=== PATIENT | female | born 1990 | race Two or more races ===

== ENCOUNTER → 2024-07-15 | Outpatient (CLI) | payer BC, SELFPAY ==
--- NOTE | 2024-07-15 14:21 | XR_ITS ---
Examination: PA lateral chest 2 views TECHNIQUE: Upright PA lateral chest 2 views Exam date and time: July 15, 2024 1434 hours Comparison 03/03/2021 INDICATIONS: Shortness of breath chest pain today FINDINGS: Normal heart size Lungs are clear. The osseous structures are intact IMPRESSION: No active disease
== END | disposition home or self-care (01) ==
LOC: COPL 14:14 → CDIM 14:26
PROVIDERS: PCP Nurse Practitioner Family; Referring Provider Nurse Practitioner Family; Visit Provider Nurse Practitioner Family
DX: R06.02 Shortness of breath (principal)
CPT/HCPCS: 71046

== ENCOUNTER 2025-06-12 23:57 | Emergency (ER) | payer BC, SELFPAY ==
[2025-06-12 23:58] VITALS: BMI 25.6
--- NOTE | 2025-06-13 00:18 | EKG_ITS ---
[facility] Test Date: 2025-06-13 Pat Name: SOURAV ROMANO Department: Room: - Gender: Female [employer] Office: : 1990 Requested By: Moises Mcintyre Order Number: [id number] Reading MD: Moises Mcintyre Measurements Intervals [place] Rate: 67 P: CA: QRS: 55 QRSD: 77 T: 63 QT: 358 QTc: 379 Interpretive Statements SUPRAVENTRICULAR RHYTHM ABNORMAL RHYTHM ECG No previous ECG available for comparison /store/S0/[id number]/ecg/[id number].pdf
[2025-06-13 01:40] VITALS: BP 114/73; PULSE 71; RESP 18; TEMP 36.7; O2SAT 100
--- NOTE | 2025-06-13 01:53 | XR_ITS ---
Examination: CT brain head without contrast. 2-D sagittal coronal reconstructions Date and time of exam: June 13, 2025, 0208 hours INDICATIONS: Syncopal episode with seizure today CTDI: vol (mGy): 46.30 DLP: (mGycm): 844 Technique: Multiple CT axial sections of the brain have been obtained, 5 mm slice thickness. Contrast has not been administered. 2-D sagittal, coronal reconstructions have been obtained Low dose protocols were performed. One or more of the following dose reduction techniques were used; automated exposure control, adjustment of the mA and/or KV according to patient size, use of iterative reconstruction technique. Findings: No significant ventricular enlargement. Intra-axial or extra-axial hemorrhage density is not seen. No mass effect or midline shift Basal cisterns are not remarkable. Fourth ventricle is midline. Cranial vault intact. Impression: Negative for acute hemorrhage, mass effect or midline shift Advise clinical correlation and follow-up accordingly
--- NOTE | 2025-06-13 01:53 | XR_ITS ---
EXAMINATION: PA chest single view TECHNIQUE: Upright PA chest single view Date and time: June 13, 2025, 0212 hours, comparison July 15, 2024 INDICATION: Chest pain shortness of breath beginning 2 days ago. FINDINGS: Suspicious for early right lower lobe pneumonia. Normal heart size Left lung clear IMPRESSION: Suspicious for early right lower lobe pneumonia
--- NOTE | 2025-06-13 01:54 | PD.EDRME ---
Rapid Medical Screening Exam RME Arrival date/time: 06/12/25 23:57 34F with history of marijuana use presents to ED with syncopal vs seizure episode where she was walking to bathroom, blacked out, and woke up on the floor with a bleeding lip. Patient has also been coughing for about a month. Chief Complaint: Syncope / Near Syncope Time Seen by Provider: 06/13/25 00:09 Vital signs: Vital Signs Temperature 98.1 F 06/13/25 01:40 Pulse Rate 71 06/13/25 01:40 Respiratory Rate 18 06/13/25 01:40 Blood Pressure 114/73 06/13/25 01:40 Pulse Oximetry (%) 100 06/13/25 01:40 Oxygen Delivery Method Room Air 06/13/25 01:40 Exam: Normal pupil response and EOM. Clear lungs and normal WOB. Speech normal. Gait normal. Clinical Impression: seizure vs syncope vs vasovagal vs CAP vs cancer vs PE vs drug/alcohol use
[2025-06-13 02:45] LABS: Collection Type, Urine Clean Catch
[2025-06-13 02:57] LABS: Bacteria,Urine Rare; Bilirubin,Urine Negative (Negative); Blood,Urine Negative (Negative); Clarity,Urine Clear (Clear/Hazy); Color,Urine Yellow (Lt Yel-Yel); Culture Indicated,Urine Not Indicated; Glucose, Urine Negative (Negative); HCG Qualitative,Urine Negative; Hyaline Casts,Urine < 1 /hpf (0-1); Ketones,Urine Negative (Negative); Leukocyte Esterase,Urine Negative (Negative); Nitrite,Urine Negative (Negative); PH,Urine 6.0 (5.0-7.0); Protein,Urine 1+ (Neg - Trace); RBC,Urine 15 /hpf (0-3); Specific Gravity,Urine 1.033 (1.001-1.035); Squamous Epithelial Cell,Urine 5 /hpf (0-5); Urobilinogen,Urine Negative mg/dL (0.0-1.0); WBC,Urine 10 /hpf (0-5)
--- NOTE | 2025-06-13 02:58 | PRELIM_ITS ---
CT scan of the head without intravenous contrast (axial sections with sagittal and coronal reformats) June 13, 2025 0208 hours Clinical History: Syncope versus seizure Comparison: None available at the time of this report. Findings: No evidence of intracranial hemorrhage, mass effect or midline shift. The ventricles and CSF spaces are unremarkable. The calvarium is intact. The mastoid air cells and the visualized paranasal sinuses are clear. Impression: No evidence of intracranial hemorrhage, midline shift or calvarial fracture. ASPECTS score 10. Report Electronically Signed By: José Miguel Valdivia 06/13/2025 2:57:58 AM [EST]
[2025-06-13 03:21] LABS: Amphetamine/Methamp Scrn,U Negative (Negative); Barbiturate Screen,Urine Negative (Negative); Benzodiazepines Screen,Urine Negative (Negative); Benzoylecgonine Screen, Ur Negative (Negative); Fentanyl Screen,Urine Negative (Negative); Opiate Screen,Urine Negative (Negative); THC Screen,Urine Positive (Negative)
[2025-06-13 03:23] LABS: Lactate (Lactic Acid) 0.5 mMol/L (0.4-2.0)
[2025-06-13 03:26] LABS: Basophils # (Auto) 0.1 Thou/mm3 (0.0-0.2); Basophils % (Auto) 0 % (0-2.5); Eosinophils # (Auto) 0.0 Thou/mm3 (0.0-0.5); Eosinophils % (Auto) 0 % (0-10); Hematocrit 37.8 % (36.0-46.0); Hemoglobin 12.5 g/dL (12.0-16.0); Immature Granulocytes Auto 0.02 Thou/mm3 (0.00-0.00); Lymphocytes # (Auto) 1.6 Thou/mm3 (1.0-4.8); Lymphocytes % (Auto) 14 % (10-50); Mean Corpuscular HGB Conc 33.1 g/dl (31.0-37.0); Mean Corpuscular Hemoglobin 30.8 pg (25.0-35.0); Mean Corpuscular Volume 93 fL (80-100); Monocytes # (Auto) 0.8 Thou/mm3 (0.0-0.8); Monocytes % (Auto) 7 % (0-12); Neutrophils # (Auto) 8.8 Thou/mm3 (1.8-7.7); Neutrophils % (Auto) 78 % (37-80); Nucleated Red Blood Cell # 0.00 Thou/mm3 (0.00-0.00); Nucleated Red Blood Cell % 0 /100 WBC (0); Platelet Count 271 Thou/mm3 (140-440); RDW Standard Deviation 43.2 fL (36.4-46.3); Red Blood Count 4.06 Miln/mm3 (4.00-5.20); White Blood Count 11.2 Thou/mm3 (3.6-11.0)
[2025-06-13 04:01] LABS: Alanine Aminotransferase 12 U/L (10-49); Albumin, Serum 4.2 gm/dL (3.5-5.0); Albumin/Globulin Ratio 1.7 (1.2-2.2); Alcohol, Blood Medical < 3.0 mg/dL (0-10.0); Alkaline Phosphatase 38 U/L (46-116); Anion Gap 4 (7-16); Aspartate Amino Transferase 15 U/L (0-34); BUN/Creatinine Ratio 20 Ratio (12-20); Bilirubin,Total 0.3 mg/dL (0.3-1.2); Blood Urea Nitrogen 16 mg/dL (9-23); Calcium 9.4 mg/dL (8.3-10.6); Calcium (Corrected) 9.4 mg/dL (8.5-10.1); Carbon Dioxide 28.7 mMol/L (20.0-31.0); Chloride 106 mMol/L (98-107); Creatinine (Component) 0.8 mg/dL (0.6-1.3); Estimated Creatinine Clearance 85.1 mL/min (>60); Globulin 2.5 gm/dL (2.3-3.5); Glucose 93 mg/dL (74-106); Osmolality,Calculated 278 (275-295); Potassium 4.4 mMol/L (3.4-5.1); Sodium 139 mMol/L (136-145); Total Protein 6.7 gm/dL (5.7-8.2); Troponin I < 0.002 ng/mL (0.0-0.045); eGFR > 60 See Note
--- NOTE | 2025-06-13 04:17 | PD.EDSYNC ---
ED Syncope RME/HPI General Chief Complaint: Syncope / Near Syncope Stated Complaint: SYNCOPE Time Seen by Provider: 06/13/25 00:09 Arrival date/time: 06/12/25 23:57 RME / HPI RME / HPI narrative: 06/12/25 23:57 34F with history of marijuana use presents to ED with syncopal vs seizure episode where she was walking to bathroom, blacked out, and woke up on the floor with a bleeding lip. Patient has also been coughing for about a month. Dr. Parker?s Main ED Evaluation: 34yo female presenting with a syncopal episode preceeded by diaphoresis and lightheadedness shortly after rising from seated position to drop off a plate in the kitchen sink. Patient reports recent URI/cough and mild residual shortness of breath. Denies palpitations or recent fever. Incident occurred at ~2330, in which patient spontaneously regained consciousness on the floor without sustained injury. Similar episode occurred 9 months ago. PSH includes cholecystectomy. Daily marijuana use. Related Data Home Medications ?Medication ?Instructions ?Recorded ?Confirmed hydrocodone 5 mg-acetaminophen 325 1 tab PO Q8H PRN Pain 12/09/1912/08/20 mg tablet Previous Rx's ?Medication ?Instructions ?Recorded hydrocodone 5 mg-acetaminophen 325 1 tab PO QID PRN pain #20 tabs 20 mg tablet Allergies Allergy/AdvReac Type Severity Reaction Status Date / Time No Known Allergies Allergy Verified 12/10/19 08:51 Review of Systems Review of Systems Systems Reviewed: All systems reviewed, normal except as documented Past Medical History Past Medical History NEUROLOGIC: Positive Neurological Disorders and Head Trauma; Negative Seizures CARDIAC: Negative Cardiac Disorders, Congestive Heart Failure, Edema, Cellulitis or Varicose Veins RESPIRATORY: Negative Chronic Obstructive Pulmonary Disease (COPD), Pneumonia, Tuberculosis or Sleep Apnea GASTROINTESTINAL: Positive Gastrointestinal Disorders, Gall Bladder Disease and Gastroesophageal Reflux Disease; Negative Hepatitis GENITOURINARY: Negative Genitourinary Disorders or Renal Disease MUSCULOSKELETAL: Positive Musculoskeletal Disorders ENT: Positive Head Trauma ENDOCRINE: Negative Endocrine Disorders, Diabetes Mellitus Type 1 or Diabetes Mellitus Type 2 HEMATOLOGIC: Negative Blood Disorders OTHER HISTORY: Positive Autoimmune Disease and Chicken Pox; Negative Hospitalization, Shingles, Falls, Blood Transfusions, Anesthesia Reactions, Chemotherapy, Radiation Therapy, MRSA, Measles, Mumps or Cancer Family History FAMILY HISTORY: Positive Family Psychiatric Problems and Family Surgery; Negative Family Respiratory Disorders, Family Cardiac Disorders, Family Gastrointestinal Problems, Family Cancer or Family Anesthesia Reaction Surgical History SURGICAL: Negative Pacemaker Social History SMOKING STATUS: Current every day smoker SECOND HAND EXPOSURE: No ED Exam Narrative Physical exam: GENERAL APPEARANCE: alert and oriented x 4, well-developed, well-nourished, no acute distress VITALS: All vitals were reviewed and the pulse ox is 100% on room air, which is normal according to my interpretation. HEENT: Normocephalic, atraumatic; pupils equal, round, reactive to light; EOMI; mucous membranes pink, moist; oropharynx clear NECK: Supple LUNGS: CTABL; no wheezes, no rales, no rhonchi HEART: Regular rate, regular rhythm; normal S1, S2; no murmurs ABDOMEN: non distended; normal BS; soft, no tenderness, no guarding, no rebound; no masses, no organomegaly, no hernia BACK: no CVA tenderness EXTREMITIES: atraumatic; no edema NEUROLOGIC: awake; alert and oriented x4; cranial nerves II-XII grossly intact; no focal sensory or motor deficits PSYCHIATRIC: appropriate mood and affect SKIN: warm, dry, normal color; no rashes Course Quality Measures none Orders Category Date Time Status Bedside COVID-19 Antigen Test NOW Care 06/13/25 01:54 Active Bedside Influenza A&B Antigen Test NOW Care 06/13/25 01:54 Completed Blood glucose [Bedside Blood Glucose] NOW Care 06/13/25 00:18 Active EKG (ED ONLY) *Do not use* NOW Care 06/13/25 00:[address] head/brain wo con Stat Exams 06/13/25 01:53 Taken EKG (ED Only) Stat Exams 06/13/25 00:18 Draft XR chest 1V portable Stat Exams 06/13/25 01:53 Taken Alcohol, Blood Medical Stat Lab 06/13/25 03:15 Completed CBC Stat Lab 06/13/25 03:15 Completed Comprehensive Metabolic Panel Stat Lab 06/13/25 03:15 Completed Drug Screen,Urine Stat Lab 06/13/25 02:33 Completed HCG Qualitative,Urine Stat Lab 06/13/25 02:33 Completed Lactate (Lactic Acid) Stat Lab 06/13/25 03:15 Completed Troponin I Stat Lab 06/13/25 03:15 Completed Urinalysis, C/S if Indicated Stat Lab 06/13/25 02:33 Completed Vital Signs Vital signs: Vital Signs Temperature 98.1 F 06/13/25 01:40 Pulse Rate 71 06/13/25 01:40 Respiratory Rate 18 06/13/25 01:40 Blood Pressure 114/73 06/13/25 01:40 Pulse Oximetry (%) 100 06/13/25 01:40 Oxygen Delivery Method Room Air 06/13/25 01:40 Syncope MDM Narrative MDM Narrative:: Scribe Attestation: 06/13/25 - Maricruz Nino am scribing for and in the presence of Dr. Parker. 34yo female presenting with a syncopal episode preceeded by diaphoresis and lightheadedness shortly after rising from seated position to drop off a plate in the kitchen sink. Patient reports recent URI/cough and mild residual shortness of breath. Denies palpitations or recent fever. Incident occurred at ~2330, in which patient spontaneously regained consciousness on the floor without sustained injury. Please see PE findings. Lab markers demonstrated WBC count 11.2, stable Hgb 12.5, normal Plt count, no left shift or bandemia. Chemistries are unremarkable. UA without evidence of infection. Ethanol undetected. EKG without signs of accessory pathway, Brugatta syndrome, or long QT interval. Patient observed for extended period of time, remained neurologically intact, and hemodynamically stable. Suspect vasovagal episode possibly contributed to orthostasis. Patient is encouraged to increase her fluid intake and reduce caffeine intake. Advised to follow-up for outpatient holter monitor. Patient data External records reviewed:: [facility] [place] previous records (Per chart review, patient has no previous ED visits.) Clinical information provided by:: patient Social determinants that could affect healthcare access:: none Patient has the following chronic illnesses:: none How is presenting disease/condition affected by chronic disease/condition?: no chronic disease Evaluation data The following diagnostics were reviewed and interpreted by me:: lab results, radiology exam(s) and EKG tracing(s) Lab and/or radiology exams considered but not ordered:: none Interpretation Summary: CXR shows normal cardiac silhouette, no effusions, no infiltrates, according to my interpretation. EKG done at 0140, sinus rhythm, rate of 67, no acute pathological ST segment changes, no ectopy, normal intervals, normal axis, according to my interpretation. [facility] Preliminary Report Draft Patient: SOURAV ROMANO. Record#: [id number] Birthdate: 1990 Age/Sex: 34 / F Location: [facility] Attending Dr: Ordering Physician: Date of Service: Procedure(s): Accession Number(s): cc: ~ CT scan of the head without intravenous contrast (axial sections with sagittal and coronal reformats) June 13, 2025 0208 hours Clinical History: Syncope versus seizure Comparison: None available at the time of this report. Findings: No evidence of intracranial hemorrhage, mass effect or midline shift. The ventricles and CSF spaces are unremarkable. The calvarium is intact. The mastoid air cells and the visualized paranasal sinuses are clear. Impression: No evidence of intracranial hemorrhage, midline shift or calvarial fracture. ASPECTS score 10. Report Electronically Signed By: José Miguel Valdivia 06/13/2025 2:57:58 AM [EST] Medications / Prescriptions Medications or Prescriptions considered but not ordered:: none Medication administrations:: none Consultations Consultation(s) initiated? (list below): No Diagnosis Syncope Differential Diagnosis: syncope due to orthostatic hypotension, vasovagal syncope, dehydration and other (electrolyte abnormality) Most likely diagnosis given after review of the tests above:: see clinical impression below Admission Indicated Admission indicated?: not indicated Admission Request Was there a request for admission?: No Disposition Plan Disposition Plan: Discharge Discharge Attestation Discharge Attestation: The patient and all family members were given an opportunity to ask questions and understood the discharge instructions. Discharge instructions specifically effects, indications for sooner follow up or return to the emergency department, and the expected course of current diagnosis. Patient condition: Stable Discharge Plan Plan Patient Disposition: HOME (Self Care) Discharge Disposition comment: Stable Prescriptions/Referrals Prescriptions/Med Rec: No Action hydrocodone-acetaminophen 5-325 mg Tablet 1 tab PO Q8H PRN (Reason: Pain) hydrocodone-acetaminophen 5-325 mg tablet 1 tab PO QID MDD 4 PRN (Reason: pain) Qty: 20 0RF Referrals: Marivel River PA-C [Primary Care Provider, Family Practice] - In 1 week Problem List Clinical Impression: Syncope and collapse Impression comment: Syncope/collapse Patient/Caregiver Discharge Instructions Discharge Activity: activity as tolerated Other Activity Instructions:: Avoid assuming upright position rapidly. Diet Instructions: Increased salt and fluid intake. Education Materials: Causes of Syncope, ED Fainting, Vagal Reaction Additional Instructions: Increase fluid hydration and salt intake. Avoid assuming upright position rapidly. Follow-up with primary care doctor for consideration of outpatient Holter/echocardiography. Precaution instructions issued. Print Language: Sami Stand Alone Forms: Marisol Award Info., Patient Portal Info Letter
[2025-06-13 04:47] VITALS: BP 102/66; BP 111/71; BP 118/77; PULSE 58; PULSE 64; PULSE 67; RESP 18; TEMP 36.7; O2SAT 98
== END 2025-06-13 04:55 | disposition home or self-care (01) ==
PROVIDERS: Physician Assistant; Emergency Provider Emergency Medicine; PCP Physician Assistant
DX: R55 Syncope and collapse (principal); R05.9 Cough, unspecified; Z90.49 Acquired absence of other specified parts of digestive tract
CPT/HCPCS: 36415; 70450; 71045; 80053; 80307; 80320; 81001; 81025; 83605; 84484; 85025; 87502; 87635; 93005; 99283; G0480